=== PATIENT | female | born 2000 | race Caucasian/White ===

== ENCOUNTER 2021-05-19 01:47 | Emergency (ER) | payer OTHER, SELFPAY ==
[2021-05-19 01:48] VITALS: BP 126/87; PULSE 106; RESP 20; TEMP 36.8; O2SAT 99; BMI 50.1
[2021-05-19 02:11] VITALS: BMI 50.1
--- NOTE | 2021-05-19 02:14 | CT_ITS ---
PROCEDURE INFORMATION: Exam: CT Abdomen And Pelvis With Contrast Exam date and time: 05/19/2021 3:48 AM Age: 20 years old Clinical indication: Other: Gi bleeding; Additional info: Gi bleed TECHNIQUE: Imaging protocol: Computed tomography of the abdomen and pelvis with contrast. Radiation optimization: All CT scans at this facility use at least one of these dose optimization techniques: automated exposure control; mA and/or kV adjustment per patient size (includes targeted exams where dose is matched to clinical indication); or iterative reconstruction. Contrast material: ISOVUE; Contrast volume: 75 ml; Contrast route: IV; COMPARISON: CR XR LUMBAR SPINE MIN 4V 12/31/2018 1:44 PM FINDINGS: Liver: Normal. No mass. Gallbladder and bile ducts: Normal. No calcified stones. No ductal dilation. Pancreas: Normal. No ductal dilation. Spleen: Normal. No splenomegaly. Adrenal glands: Normal. No mass. Kidneys and ureters: Normal. No hydronephrosis. Stomach and bowel: Unremarkable. No obstruction. No mucosal thickening. Appendix: No evidence of appendicitis. Intraperitoneal space: Unremarkable. No free air. No significant fluid collection. Vasculature: Unremarkable. No abdominal aortic aneurysm. Lymph nodes: Unremarkable. No enlarged lymph nodes. Urinary bladder: Unremarkable as visualized. Reproductive: Unremarkable as visualized. Bones/joints: Unremarkable. No acute fracture. Soft tissues: Unremarkable. IMPRESSION: No acute findings.
--- NOTE | 2021-05-19 02:18 | PC.NURSE ---
Pt drinking oral contrast now, radiology notified
[2021-05-19 02:27] LABS: Chloride 105 mmol/L (98-107)
[2021-05-19 02:28] LABS: Basophils # 0.2 K/mm3 (0-0.2); Basophils % 1.7 % (0.1-2.0); Eosinophils # 0.3 K/mm3 (0.0-0.4); Hematocrit 43.1 % (37.0-47.0); Hemoglobin 14.1 g/dL (12.2-16.2); Lymphocytes % 39.7 % (10-50); Mean Corpuscular HGB Conc 32.8 g/dL (31.8-35.4); Mean Corpuscular Hemoglobin 31.1 pg (27.0-31.2); Mean Corpuscular Volume 94.7 fl (81-99); Mean Platelet Volume 7.9 fl (7.4-10.4); Monocytes # 0.6 K/mm3 (0.1-1.0); Monocytes % 4.4 % (1.7-9.3); Neutrophils # 6.5 K/mm3 (1.8-7.8); Neutrophils % 52.1 % (37.0-80.0); Platelet Count 410 K/mm3 (142-424); Potassium 3.9 mmoL/L (3.5-5.1); Red Blood Count 4.55 M/mm3 (4.20-5.40); Red Cell Distribution Width 12.8 % (11.5-17.5); Sodium 138 mmol/L (136-145); White Blood Count 12.5 K/mm3 (4.8-10.8)
[2021-05-19 02:30] LABS: Alanine Aminotransferase 37 U/L (12-78); Albumin Level 4.1 g/dl (3.5-5.0); Albumin/Globulin Ratio 1.5 (1.1-1.8); Alkaline Phosphatase 58 U/L (38-126); Anion Gap 12.9 mEq/L (5-15); Aspartate Amino Transferase 34 U/L (14-36); Bilirubin,Total 0.6 mg/dl (0.2-1.3); Blood Urea Nitrogen 10 mg/dl (7-17); Carbon Dioxide 24 mmol/L (22.0-30.0); Creatinine Clearance Estimated 114 mL/min (50-200); Estimated Glomerular Filt Rate 79 ml/min (>60); GFR (African American) 96 ML/MIN (>60); Globulin 2.7 g/dL (1.3-3.2); Total Protein,Serum 6.8 g/dl (6.3-8.2)
[2021-05-19 02:31] LABS: Calcium 8.4 mg/dl (8.4-10.2); Glucose 110 mg/dl (74-100)
[2021-05-19 02:34] VITALS: BP 126/87; BP 142/85; BP 152/82; PULSE 106; PULSE 111; PULSE 124
[2021-05-19 02:41] LABS: HCG Qualitative, Serum Negative (Negative)
--- NOTE | 2021-05-19 02:46 | [facility].EDGIBL ---
ED Disposition Clinical Impression: Lower gastrointestinal hemorrhage Disposition: Home, Self-Care Condition on Discharge: Good Instructions: DI for Gastrointestinal Bleeding Additional Instructions: see pcp and gi for follow up Referrals: Hang Dan [Primary Care Provider] - Dario Reilly [Referring] - - Critical Care Critical Care Time: No Attestation: On 05/19/21, the high probability of a clinically significant, sudden or life threatening deterioration of the following system(s) required my full and direct attention, intervention and personal management. The time I documented below is in addition to time spent performing reported procedures but includes the following listed in this critical care notation. Medical Decision Making - Medical Records Medical records reviewed: Yes: I reviewed the patient's medical records. - Tam Inquiry Pt receiving controlled substance: No Vital Signs: 05/19/21 01:48 05/19/21 02:34 Temperature 98.3 F Temperature Source Oral Pulse Rate [Orthostatic Lying] 106 H Pulse Rate [Orthostatic Sitting] 111 H Pulse Rate [Orthostatic Standing] 124 H Pulse Rate [Right] 106 H Respiratory Rate 20 Blood Pressure [Orthostatic Lying Left Arm] 126/87 Blood Pressure [Orthostatic Sitting Left Arm] 142/85 H Blood Pressure [Orthostatic Standing Right Arm] 152/82 H Blood Pressure [Right Arm] 126/87 Blood Pressure Mean [Right Arm] 100 Blood Pressure Source [Right Arm] Automatic Cuff Blood Pressure Position [Right Arm] Supine 02 Sat by Pulse Oximetry 99 Oxygen Delivery Method Room Air - Lab Data Lab results reviewed: Yes: I reviewed the patient's lab results. Lab Results 05/19/21 02:00: ESR 21 H 05/19/21 02:00: C-Reactive Protein 8.2 H, Procalcitonin 0.063, TSH 1.09, Thyroxine (T4) 13.8 H 05/19/21 02:00: WBC 12.5 H, RBC 4.55, Hgb 14.1, Hct 43.1, MCV 94.7, MCH 31.1, MCHC 32.8, RDW 12.8, Plt Count 410, MPV 7.9, Neut % (Auto) 52.1, Lymph % (Auto) 39.7, [place] % (Auto) 4.4, Eos % (Auto) 2.0, Baso % (Auto) 1.7, Neut # (Auto) 6.5, Lymph # (Auto) 5.0 H, [place] # (Auto) 0.6, Eos # (Auto) 0.3, Baso # (Auto) 0.2 05/19/21 02:00: Sodium 138, Potassium 3.9, Chloride 105, Carbon Dioxide 24, Anion Gap 12.9, BUN 10, Creatinine 0.90, Estimated Creat Clear 114, Estimated GFR 79, Est GFR ( Amer) 96, Glucose 110 H, Calcium 8.4, Total Bilirubin 0.6, AST 34, ALT 37, Alkaline Phosphatase 58, Total Protein 6.8, Albumin 4.1, Globulin 2.7, Albumin/Globulin Ratio 1.5 05/19/21 02:00: Serum HCG, Qual Negative 05/19/21 03:47: Urine Color Dk yellow, Urine Appearance Clear, Urine pH 6.0, Ur Specific [place] >= 1.030, Urine Protein Negative, Urine Glucose (UA) Negative, Urine Ketones Negative, Urine Blood Negative, Urine Nitrate Negative, Urine Bilirubin Negative, Urine Urobilinogen 0.2, Ur Leukocyte Esterase Negative, Urine WBC Occasional, Ur Squamous Epith Cells 3-5, Amorphous Sediment Trace, Urine Mucus 4+ 05/19/21 05:07: Stool Occult Blood Positive A Result diagrams: 05/19/21 02:00 05/19/21 02:00 Orders (Tests/Meds): ED MEDICATIONS Generic Name Dose Route Start Last Admin Trade Name Freq PRN Reason Stop Dose Admin Sodium Chloride 1,000 mls @ 999 mls/hr 05/19/21 02:15 05/19/21 02:20 Sod Chlor 0.9% 1000ml Bag IV 05/19/21 03:15 999 mls/hr .Q1H1M LIVAN Administration Lactated Ringer's 1,000 mls @ 999 mls/hr 05/19/21 05:00 05/19/21 05:15 Lactated Ringer's 1000 Ml Bag IV 05/19/21 06:00 999 mls/hr .Q1H1M LIVAN Administration Discontinued Medications Generic Name Dose Route Start Last Admin Trade Name Freq PRN Reason Stop Dose Admin Diatrizoate Meglum/Diatrizoate Sod 30 ml 05/19/21 02:14 05/19/21 02:20 Diatrizoate January 66% & Diatrizoate Na 10% 30ml Udc PO 05/19/21 02:15 30 ml ONCE ONE Administration Iopamidol 75 ml 05/19/21 03:58 05/19/21 03:59 Iopamidol-370 (76%);100ml Bottle IV 05/19/21 03:59 75 ml ONCE ONE Administration Ondansetron HCl 4 mg 03
[2021-05-19 02:59] LABS: C-Reactive Protein 8.2 mg/L (0-4)
--- NOTE | 2021-05-19 03:00 | PC.NURSE ---
Examined rectum and when collect stool occult, no blood noted. tone intact.
[2021-05-19 03:04] LABS: Erythrocyte Sedimentation Rate 21 mm/hr (0-20)
[2021-05-19 03:14] LABS: Procalcitonin 0.063 ng/mL (0.0-2.0); T4 (Thyroxine) 13.8 ug/dl (5.53-11.0)
[2021-05-19 03:27] LABS: Thyroid Stimulating Hormone 1.09 uIU/mL (0.465-4.68)
--- NOTE | 2021-05-19 03:46 | PC.NURSE ---
pt to ct scan
[2021-05-19 03:53] LABS: Microscopic, Urine URINE MICROSCOPIC (MICROSCOPIC)
[2021-05-19 03:58] LABS: Appearance,Urine CLEAR (Clear); Blood, Urine Negative (Negative); Color,Urine DK YELLOW (Yellow); Glucose,Urine (UA) Negative (Negative); Ketones,Urine Negative (Negative); Leukocyte Esterase,Urine Negative (Negative); Nitrate,Urine Negative (Negative); Protein,Urine Negative (Negative); Specific Gravity, Urine >= 1.030 (1.005-1.030); Urobilinogen,Urine 0.2 EU/dl (0.2)
[2021-05-19 04:04] LABS: Bilirubin,Urine Negative (Negative)
[2021-05-19 04:05] LABS: Amorphous Sediment,Urine Trace /lpf; Mucus,Urine 4+ /lpf; WBC,Urine Occasional #/hpf (0-3)
--- NOTE | 2021-05-19 05:07 | PC.NURSE ---
Pt back from and states she did have some bright red blood per rectum. In hat, was 5ml of bright red blood and in tissue was a small clot. sample submitted to lab for stool occult.
[2021-05-19 05:22] LABS: Occult Blood,Stool Positive (Negative)
[2021-05-19 06:18] VITALS: BP 124/81; PULSE 84; RESP 18; TEMP 36.8; O2SAT 99
== END 2021-05-19 06:37 | disposition home or self-care (01) ==
PROVIDERS: Emergency Provider Emergency Medicine; PCP Family Medicine
DX: K92.2 Gastrointestinal hemorrhage, unspecified (principal); R31.0 Gross hematuria; K64.9 Unspecified hemorrhoids; F17.210 Nicotine dependence, cigarettes, uncomplicated
CPT/HCPCS: 74177; 80053; 81001; 82272; 84145; 84436; 84443; 84703; 85025; 85651; 86140; 96361; 96365; 96366; 96374; 96375; 99284; G0328; J2405; Q9967